=== PATIENT | male | born 1955 | race Caucasian/White ===

== ENCOUNTER 2016-06-24 08:07 | Day surgery (SDC) | payer OTHER ==
[~2016-06-24] VITALS: Ht 172.7 cm; Wt 95.3 kg
[2016-06-24 08:56] VITALS: Ht 172.7 cm; Wt 95.3 kg
[2016-06-24] MEDS ORDERED: LITHIUM PO (09:00)
[2016-06-24] MEDS ORDERED: SEROQUEL PO (09:01)
[2016-06-24] MEDS ORDERED: LORAZEPAM PO (09:01)
[2016-06-24 09:07] VITALS: BP 120/79; PULSE 66; RESP 18
[2016-06-24] MEDS ORDERED: PROPOFOL 40 ML ONE (09:22)
[2016-06-24 09:57] VITALS: BP 125/78; PULSE 64; RESP 22
--- NOTE | 2016-06-24 10:15 | GILP ---
DATE OF PROCEDURE: PROCEDURE: Colonoscopy with polypectomy and biopsy. INDICATION: A 61-year-old male undergoing this procedure for colon cancer screening. The risks of the procedure, related and unrelated complications, anesthetic risk, alternatives discussed. Inform ed consent was obtained. DESCRIPTION OF PROCEDURE: The patient was brought to the GI lab, sedated by the anesthesiologist. After optimal sedation, scope was passed with much ease into rectum and advanced slowly through sigm oid into the transverse colon. A 1.2 cm polyp was identified, successfully removed by hot snare andreas hnique. Polyp was retrieved and sent for analysis. It was in the mid transverse colon. Scope was advanced all the way into the cecum. Near the appendix there was a flat polyp identified and succes sfully removed by cold biopsy Jumbo forceps. Rest of the colon appeared normal. Hemorrhoids identi fied both on the retroversion and also on antegrade examination: FINDINGS: 1. Hemorrhoids. 2. Two polyps successfully removed, one by hot snare technique, 1.2 cm; and another one diminutive by Jumbo biopsy forceps. PLAN: Plan is to review the histopathology. The patient needs to stay on high fiber diet. If danielle yp is nonhyperplastic, that is adenomatous or villous of serrated, then needs repeat colonoscopy in 5 years. Dictated By: DEBBIE CHOWDHURY/YONY Conf#: [id number] DID#: [id number] CC: DEVEN BARGER MD;*EndCC*
== END 2016-06-24 09:52 | disposition home or self-care (01) ==
LOC: GIL 08:07
PROVIDERS: ATTEND Internal Medicine Gastroenterology
DX: Z12.11 Encounter for screening for malignant neoplasm of colon (principal); D12.0 Benign neoplasm of cecum; D12.3 Benign neoplasm of transverse colon; K64.9 Unspecified hemorrhoids; Z87.891 Personal history of nicotine dependence
CPT/HCPCS: 45380; 45385; 88305; Z7610